=== PATIENT | female | born 1990 | race Two or more races ===

== ENCOUNTER 2022-03-30 00:37 | Inpatient (IN) | payer MEDICAID ==
[2022-03-30] MEDS ORDERED: Lactated Ringers 1,000 ML IV SCH ×2 (02:15→03:15)
[2022-03-30] MEDS ORDERED: Lactated Ringers 1,000 ML IV ONE ×2 (02:15→03:15)
[2022-03-30] MEDS ORDERED: Penicillin G Potassium 5 MILLUNITS in Sodium Chloride 0.9% 50 ML IV ONE (03:00)
[2022-03-30] MEDS ORDERED: Penicillin G Potassium 5 MILLUNITS in Sodium Chloride 0.9% 100 ML IV ONE (03:00)
[2022-03-30] MEDS ORDERED: Ropivacaine 100 ML EPIDUR ONE ×2 (03:22)
[2022-03-30] MEDS ORDERED: Carboprost Tromethamine 250 MCG/1 ML Amp IM ONE ×2 (08:50)
[2022-03-30] MEDS ORDERED: Misoprostol 200 MCG Tab RECTAL ONE ×3 (08:50)
[2022-03-30] MEDS ORDERED: Tranexamic Acid 1,000 MG in Sodium Chloride 0.9% 50 ML IV ONE ×4 (09:12)
[2022-03-30] MEDS ORDERED: Acetaminophen/oxyCODONE 325-5 MG Tab PO PRN (09:40)
[2022-03-30] MEDS ORDERED: Acetaminophen/oxyCODONE 325-5 MG Tab PO ONE (13:15)
[2022-03-31] MEDS ORDERED: Acetaminophen/oxyCODONE 325-5 MG Tab PO ONE (09:50)
== END 2022-03-31 11:35 | disposition home or self-care (01) | DRG 806 ==
LOC: JP.OBCHECK 00:37 → JP.ZCENSUS 03:15 → OBSVTOIN 08:44
PROVIDERS: ADMIT Obstetrics & Gynecology; ATTEND Obstetrics & Gynecology
PROC: 10E0XZZ Delivery of Products of Conception, External Approach (ICD-10-PCS; principal; 2022-03-30)
PROC: 0HQ9XZZ Repair Perineum Skin, External Approach (ICD-10-PCS; 2022-03-30)
PROC: 3E0R3BZ Introduction of Anesthetic Agent into Spinal Canal, Percutaneous Approach (ICD-10-PCS; 2022-03-30)
DX: O48.0 Post-term pregnancy (principal); O72.1 Other immediate postpartum hemorrhage; Z37.0 Single live birth; Z3A.40 40 weeks gestation of pregnancy; O66.0 Obstructed labor due to shoulder dystocia; O70.0 First degree perineal laceration during delivery
CPT/HCPCS: 36415; 51702; 80305-QW; 81001; 84112; 85025; 99211; A9270-GY; J2540; J2590; J2795; J3490; J7030; J7120; U0002